=== PATIENT | female | born 1970 | race African-American/Black ===

== ENCOUNTER 2021-09-12 14:10 | Inpatient (IN) | payer OTHER ==
[~2021-09-12] VITALS: Ht 162.6 cm; Wt 57.6 kg
--- NOTE | ~2021-09-12 | EMS ---
[address] [address] EMS Patient Care Report Name: CLEVELAND JAMES Room #: 170-2 ADM IN M.R.#: [id number] Admission: 09/12/21 Attend Phys: Samira Rush Discharge: Date of : 74 Report #: [id number] THIS REPORT FOR: //name// Report Transmitted: 09/12/2021 19:13 EMS Care Summary [place], [place]/[facility] Incident [id number] @ 09/12/2021 13:34 Incident Location [address] [place] [address] Patient CLEVELAND JAMES Female, 51 Years 1970 Patient Address [address] [place] [address] Patient History Hypertension (HTN), Patient Allergies No known allergies, Patient Medications None Reported, Chief Complaint ABDOMINAL PAIN Disposition Transported No Lights/[place] Dispatch Reason Traumatic Injury Transported To [facility] Narrative M41 WAS DISPATCHED FOR A TRAUMATIC INJURY. UPON ARRIVAL ROSSANA PT WAS SITTING ON HER COUCH, HUNCHED FORWARD IN A GUARDED POSITION OVER HER ABDOMEN. THE PT [facility] [address] [place] [address] EMS Patient Care Report Name: CLEVELAND JAMES Room #: 170-2 ADM IN M.R.#: [id number] Admission: 09/12/21 Attend Phys: Samira Rush Discharge: Date of : 74 Report #: [id number] INFORMED EMS THAT WHILE HAVING A BOWEL MOVEMENT SHE HAD A SUDDEN ONSET OF ABDOMINAL PAIN TO HER RIGHT LOWER QUADRANT. THE PT DESCRIBED THIS PAIN ACHY AND THROBBING. THE PT DENIED PAIN ANYWHERE ELSE, AND SAID THE PAIN DID NOT RADIATE TO ANY OTHER PART OF HER BODY. THE PT DID NOT HAVE ANY OBVIOUS DEFORMITIES TO THE AREA. THE PT WAS HYPERTENSIVE, WHICH SHE HAS A HISTORY OF, BUT INFORMED EMS THAT SHE HAD NOT BEEN COMPLIANT WITH HER HYPERTENSIVE MEDICATIONS FOR "ABOUT TWO YEARS". THE PT WAS MOVED TO THE AMBULANCE AND TRANSPORTED TO THE HOSPITAL WHILE BEING MONITORED ENROUTE. THE PT WAS TRANSFERRED TO HOSPITAL STAFF WITH A REPORT. EMS RETURNED TO SERVICE. Initial Vitals @13:54P: 90,R: 20,Pain: 6/10,GCS: 15,CO: 3,SpO2: 100,[place] Suspected: false @14:00P: 91,R: 20,BP: 218/116,Pain: 6/10,GCS: 15,CO: 3,SpO2: 100,Revised Trauma: 12, @13:49P: 79,R: 20,BP: 208/122,Pain: 6/10,GCS: 15,CO: 3,SpO2: 100,Revised Trauma: 12, @13:39P: 94,R: 20,BP: 243/115,Pain: 6/10,GCS: 15,Glucose: 97,SpO2: 100,Revised Trauma: 12,[place] Suspected: false Assessments @13:38MENTAL:Event Oriented,Time Oriented,Place Oriented,Person Oriented,SKIN:HEENT:Head/Face: No Abnormalities,Neck/Airway: No Abnormalities,LUNG SOUNDS:Right Lower: Guarding,Right Upper: Tenderness,Right Lower: Tenderness,General: Nausea,ABDOMEN:Right Lower: Guarding,Right Upper: Tenderness,Right Lower: Tenderness,General: Nausea,PELVIS//GI:No Abnormalities,EXTREMITIES:Left Arm: No Abnormalities,Right Arm: No Abnormalities,Left Leg: No Abnormalities,Right Leg: No Abnormalities,PULSE:Radial: 2+ Normal,NEURO:No Abnormalities, Impression Abdominal Pain Procedures @13:54 12-Lead ECG Response: UnchangedSucceeded @13:39 3-Lead ECG Response: UnchangedSucceeded @13:55 IV Therapy - Saline Lock 0cc (20 ga) Site: Hand-Left Response: UnchangedFailed @13:57 IV Therapy - Saline Lock 0cc (20 ga) Site: Antecubital-Left Response: UnchangedFailed @13:38 ALS Assessment Timeline 13:33,Call Received 13:33,Dispatch Notified 13:34,[place] [address] EMS Patient Care Report Name: CLEVELAND JAMES Room #: 170-2 ADM IN M.R.#: [id number] Admission: 09/12/21 Attend Phys: Samira Rush Discharge: Date of : 74 Report #: [id number] 13:35,En Route 13:37,On Scene 13:38,At Patient 13:38,ALS Assessment, 13:39,3-Lead ECG,Response: UnchangedSucceeded, 13:39,BP: 243/115 M,PULSE: 94,RR: 20 R,SPO2: 100 Ox,ETCO2: ,B,PAIN: 6,GCS: 15, 13:49,BP: 208/122 M,PULSE: 79,RR: 20 R,SPO2: 100 Ox,ETCO2: ,BG: ,PAIN: 6,GCS: 15, 13:54,12-Lead ECG,Response: UnchangedSucceeded, 13:54,BP: / M,PULSE: 90,RR: 20 R,SPO2: 100 Ox,ETCO2: ,BG: ,PAIN: 6,GCS: 15, 13:55,IV Therapy - Saline Lock 0cc 20 ga Site: Hand-Left,Response: UnchangedFailed, 13:56,Depart Scene 13:57,IV Therapy - Saline Lock 0cc 20 ga Site: Antecubital-Left,Response: UnchangedFailed, 14:00,BP: 218/116 M,PULSE: 91,RR: 20 R,SPO2: 100 Ox,ETCO2: ,BG: ,PAIN: 6,GCS: 15, 14:06,At Destination 14:21,Call Closed Disclaimer v1.1 Copyright 2021 [employer] This EMS Care Summary contains data elements from the applicable legal record (which may be displayed differently). It is designed to provide pertinent information for the following purposes: continuity of care, clinical quality, and state data reporting. The complete legal record is available to ED staff and administrators of the receiving hospital in [employer]'s Patient Tracker. All data is provided "as is."
--- NOTE | ~2021-09-12 | EMS ---
[address] [address] EMS Patient Care Report Name: CLEVELAND JAMES Room #: PRE M.R.#: [id number] Admission: Attend Phys: Discharge: Date of : 74 Report #: [id number] THIS REPORT FOR: //name// Report Transmitted: 09/12/2021 13:37 EMS Care Summary [place], [place]/[facility] Incident [id number] @ 09/12/2021 13:34 Incident Location [address] [place] [address] Patient CLEVELAND JAMES Female, 51 Years 1970 Patient Address [address] [place], [place] [id number] Patient History Hypertension (HTN), Patient Allergies No known allergies, Patient Medications None Reported, Chief Complaint ABDOMINAL PAIN Disposition Transported No Lights/[place] Dispatch Reason Traumatic Injury Transported To [facility] Narrative M41 WAS DISPATCHED FOR A TRAUMATIC INJURY. UPON ARRIVAL ORSSANA PT WAS SITTING ON HER COUCH, HUNCHED FORWARD IN A GUARDED POSITION OVER HER ABDOMEN. THE PT [address] [address] EMS Patient Care Report Name: CLEVELAND JAMES Room #: [facility] Carol#: [id number] Admission: Attend Phys: Discharge: Date of : 74 Report #: [id number] INFORMED EMS THAT WHILE HAVING A BOWEL MOVEMENT SHE HAD A SUDDEN ONSET OF ABDOMINAL PAIN TO HER RIGHT LOWER QUADRANT. THE PT DESCRIBED THIS PAIN ACHY AND THROBBING. THE PT DENIED PAIN ANYWHERE ELSE, AND SAID THE PAIN DID NOT RADIATE TO ANY OTHER PART OF HER BODY. THE PT DID NOT HAVE ANY OBVIOUS DEFORMITIES TO THE AREA. THE PT WAS HYPERTENSIVE, WHICH SHE HAS A HISTORY OF, BUT INFORMED EMS THAT SHE HAD NOT BEEN COMPLIANT WITH HER HYPERTENSIVE MEDICATIONS FOR "ABOUT TWO YEARS". THE PT WAS MOVED TO THE AMBULANCE AND TRANSPORTED TO THE HOSPITAL WHILE BEING MONITORED ENROUTE. THE PT WAS TRANSFERRED TO HOSPITAL STAFF WITH A REPORT. EMS RETURNED TO SERVICE. Initial Vitals @13:54P: 90,R: 20,Pain: 6/10,GCS: 15,CO: 3,SpO2: 100,[place] Suspected: false @14:00P: 91,R: 20,BP: 218/116,Pain: 6/10,GCS: 15,CO: 3,SpO2: 100,Revised Trauma: 12, @13:49P: 79,R: 20,BP: 208/122,Pain: 6/10,GCS: 15,CO: 3,SpO2: 100,Revised Trauma: 12, @13:39P: 94,R: 20,BP: 243/115,Pain: 6/10,GCS: 15,Glucose: 97,SpO2: 100,Revised Trauma: 12,[place] Suspected: false Assessments @13:38MENTAL:Person Oriented,Place Oriented,Time Oriented,Event Oriented,SKIN:HEENT:Head/Face: No Abnormalities,Neck/Airway: No Abnormalities,LUNG SOUNDS:General: Nausea,Right Lower: Tenderness,Right Upper: Tenderness,Right Lower: Guarding,ABDOMEN:General: Nausea,Right Lower: Tenderness,Right Upper: Tenderness,Right Lower: Guarding,PELVIS//GI:No Abnormalities,EXTREMITIES:Left Arm: No Abnormalities,Right Arm: No Abnormalities,Left Leg: No Abnormalities,Right Leg: No Abnormalities,PULSE:Radial: 2+ Normal,NEURO:No Abnormalities, Impression Abdominal Pain Procedures @13:54 12-Lead ECG Response: UnchangedSucceeded @13:39 3-Lead ECG Response: UnchangedSucceeded @13:55 IV Therapy - Saline Lock 0cc (20 ga) Site: Hand-Left Response: UnchangedFailed @13:57 IV Therapy - Saline Lock 0cc (20 ga) Site: Antecubital-Left Response: UnchangedFailed @13:38 ALS Assessment Timeline 13:33,Call Received 13:33,Dispatch Notified 13:34,Dispatched [address] [address] EMS Patient Care Report Name: DILMA JAMESSUN Room #: PRE ER M.R.#: [id number] Admission: Attend Phys: Discharge: Date of : 74 Report #: [id number] 13:35,En Route 13:37,On Scene 13:38,At Patient 13:38,ALS Assessment, 13:39,3-Lead ECG,Response: UnchangedSucceeded, 13:39,BP: 243/115 M,PULSE: 94,RR: 20 R,SPO2: 100 Ox,ETCO2: ,B,PAIN: 6,GCS: 15, 13:49,BP: 208/122 M,PULSE: 79,RR: 20 R,SPO2: 100 Ox,ETCO2: ,BG: ,PAIN: 6,GCS: 15, 13:54,12-Lead ECG,Response: UnchangedSucceeded, 13:54,BP: / M,PULSE: 90,RR: 20 R,SPO2: 100 Ox,ETCO2: ,BG: ,PAIN: 6,GCS: 15, 13:55,IV Therapy - Saline Lock 0cc 20 ga Site: Hand-Left,Response: UnchangedFailed, 13:56,Depart Scene 13:57,IV Therapy - Saline Lock 0cc 20 ga Site: Antecubital-Left,Response: UnchangedFailed, 14:00,BP: 218/116 M,PULSE: 91,RR: 20 R,SPO2: 100 Ox,ETCO2: ,BG: ,PAIN: 6,GCS: 15, 14:06,At Destination 14:21,Call Closed Disclaimer v1.1 Copyright 2021 [employer] This EMS Care Summary contains data elements from the applicable legal record (which may be displayed differently). It is designed to provide pertinent information for the following purposes: continuity of care, clinical quality, and state data reporting. The complete legal record is available to ED staff and administrators of the receiving hospital in [employer]'s Patient Tracker. All data is provided "as is."
[~2021-09-12 14:10] MED LIST: NOHOMEMEDICATIONS; NORCO 5-325 TA1 EACH PO
[2021-09-12 14:31] LABS: HEMATOCRIT 43.2 % (37.0-47.0); HEMOGLOBIN 14.8 gm/dL (12.0-15.0); MCHC 34.3 g/dL (28.0-37.0); MCV 96.2 fL (80.0-100.0); RBC 4.49 mil/uL (4.20-5.00); RDW 18.8 % (10.5-14.5); WBC 8.7 thou/uL (4.0-11.0)
[2021-09-12 14:34] LABS: CREATININE 0.7 mg/dL (0.6-1.0); POTASSIUM 4.4 mmol/L (3.5-5.1)
[2021-09-12 14:40] LABS: ALBUMIN 4.3 g/dL (3.4-5.0); TOTAL BILIRUBIN 0.3 mg/dL (0.2-1.0)
[2021-09-12 14:59] LABS: URINE BILIRUBIN NEGATIVE (Negative); URINE BLOOD NEGATIVE (Negative); URINE CLARITY CLEAR; URINE COLOR YELLOW; URINE GLUCOSE-RANDOM* NEGATIVE (Negative); URINE KETONES NEGATIVE (Negative); URINE LEUKOCYTES-REFLEX NEGATIVE (Negative); URINE NITRITE-REFLEX NEGATIVE (Negative); URINE PROTEIN (DIPSTICK) 2+ (Negative); URINE SPECIFIC GRAVITY 1.025 (1.005-1.035); URINE UROBILINOGEN 0.2 E.U./dl (0.2-1.0)
[2021-09-12 15:24] LABS: BACTERIA-REFLEX None Seen /HPF (None Seen); CASTS None Seen /LPF (None Seen); CRYSTALS None Seen /LPF (None Seen); SQUAMOUS 0-3 Few /LPF (0-3); URINE RBC None Seen /HPF (NONE SEEN); URINE WBC-REFLEX 0-5 Rare /HPF (0-5)
[2021-09-12 17:41] LABS: AMP/METHAMP Negative (Negative); BARBITURATES Negative (Negative); BENZODIAZEPINES Negative (Negative); COCAINE Negative (Negative); METHADONE Negative (Negative); OPIATES Negative (Negative); PCP Negative (Negative)
[2021-09-12 21:00] VITALS: BP 193/105
[2021-09-13] VITALS (7 sets, daily range): BP systolic 171–220; BP diastolic 100–119
[2021-09-13 06:03] LABS: HEMATOCRIT 38.9 % (37.0-47.0); MCH 32.5 pg (26.0-34.0); MCHC 33.4 g/dL (28.0-37.0); MCV 97.2 fL (80.0-100.0); RDW 18.9 % (10.5-14.5); WBC 11.2 thou/uL (4.0-11.0)
[2021-09-13 06:17] LABS: CALCIUM 8.3 mg/dL (8.5-10.1); CREATININE 0.9 mg/dL (0.6-1.0)
[2021-09-13 06:21] LABS: ALBUMIN 3.5 g/dL (3.4-5.0); PHOSPHORUS 2.3 mg/dL (2.6-4.7)
[2021-09-13 06:24] LABS: POTASSIUM 3.4 mmol/L (3.5-5.1)
--- NOTE | 2021-09-13 06:45 | NUR ---
END OF SHIFT SUMMARY: PT WAS ABLE TO GET SOME REST DURING THE NIGHT, HOWEVER CONTINUED TO COMPLAIN OF PAIN. PAIN MEDICINE WAS GIVEN WHEN TIME, AND MEDICINE WOULD HELP WITH PAIN FOR ABOUT 2-3 HOURS. PTS BLOOD PRESSURE WAS TREATED THROUGHOUT THE NIGHT WITH SCHEDULED AND PRN MEDICATION. PT DOES SEEM UNCOMFORTABLE UPON ASSESSMENT AND QUESTIONING ABOUT PAIN HOWEVER WHILE AT BEDSIDE GIVING SCHEDULED 0600 MEDICATIONS, PT DOZED OFF AND FORGOT NURSE WAS AT BEDSIDE GIVING MEDICATIONS. VITAL SIGNS HAVE REMAINED STABLE THROUGH THE NIGHT WITH BLOOD PRESSURE MEDICATIONS. PT DOES HAVE CALL LIGHT AND WATER AT BEDSIDE. CALL LIGHT IN REACH. PT DENIES ANY NEEDS AT THIS TIME, OTHER THAN PAIN MEDICATION. PT EDUCATED THAT MEDICATION CAN ONLY BE GIVEN EVERY 4 HOURS, PT STATED UNDERSTANDING.
--- NOTE | 2021-09-13 09:01 | NUR ---
pt arrived to unit via wheelchair; 2LNC; 9/10 PAIN ABD; PATIENT A&0X4 VS ON ADMISSION 192/104 RIGHT UPPER ARM; SEMI MIRANDA'S POSITION; 100% 2LNC, 62 HR, 16 RR. DENIES CHEST PAIN, N/V, NUMBNESS, TINGLING. REPORT GIVEN THAT PATIENT HAS BEEN HTN ALL NIGHT, WITH PRN MEDICATIONS GIVEN.
--- NOTE | 2021-09-13 09:08 | NUR ---
DR. SHAHID PAGED IN REGARDS TO ELEVATED BP. CONTINUED TO BE ELEVATED THROUGHOUT THE NIGHT, 190/100'S
--- NOTE | 2021-09-13 15:12 | NUR ---
7050 RUMA AMARO NOTIFIED OF SEVERAL ATTEMPTS FOR NG TUBE PLACEMENT WITH NO SUCCESS. PT REFUSED ANY FURTHER ATTEMPTS. ORDER FOR LIDOCAINE SPRAY OBTAINED, SEE ORDERS. WILL ATTEMPT AGAIN ONCE MEDICATIONS ARE AVAILABLE.
--- NOTE | 2021-09-13 15:44 | NUR ---
1530 NG TUBE SUCCESSFULLY PLACED; 1540 XRAY IN ROOM TO CONFIRM PLACEMENT; NG TUBE AT 53 AT NASAL OPENING; WILL WAIT FOR CONFIRMATION FROM RADIOLOGIST PRIOR TO SETTING SUCTION UP ON LOW INTERM. SUCTION.
--- NOTE | 2021-09-13 16:45 | NUR ---
ADVANCED NG PER RECOMMENDATION; NG NOW AT 65 CM; CXR ORDERED TO RECHECK PLACEMENT
--- NOTE | 2021-09-13 18:08 | NUR ---
PAGED DR. WILLS TO VERIFY OK TO START SUCTION. VERBAL ORDER OK TO START. LOW INTERM. SUCTION
[2021-09-14 03:10] LABS: HEMATOCRIT 40.1 % (37.0-47.0); HEMOGLOBIN 13.4 gm/dL (12.0-15.0); MCH 32.3 pg (26.0-34.0); MCHC 33.3 g/dL (28.0-37.0); RBC 4.13 mil/uL (4.20-5.00); RDW 18.7 % (10.5-14.5); WBC 12.6 thou/uL (4.0-11.0)
[2021-09-14 04:07] VITALS: BP 159/93
[2021-09-14 04:53] LABS: ALBUMIN 3.5 g/dL (3.4-5.0); CALCIUM 8.2 mg/dL (8.5-10.1); CREATININE 0.7 mg/dL (0.6-1.0); PHOSPHORUS 2.3 mg/dL (2.5-4.9)
--- NOTE | 2021-09-14 04:56 | NUR ---
Pt. was given ivp pain medication for c/o abdominal pain (see emar). She wanted her ng tube taken out or more pain meds. Spoke with Shikha WOODS and no new orders for any further pain intervention. Pt. decided to leave the ng tube in. Ng tube is patent to low intermittent suction.
[2021-09-14 07:40] VITALS: BP 181/84
--- NOTE | 2021-09-14 14:43 | NUR ---
1200 pt left floor for study. 1440 pt still off floor.
--- NOTE | 2021-09-14 14:50 | NUR ---
pt just got back from radiology
[2021-09-14 15:41] VITALS: BP 220/120
[2021-09-14 19:15] VITALS: BP 214/120
[2021-09-15 04:04] LABS: ALBUMIN 3.3 g/dL (3.4-5.0); CREATININE 0.5 mg/dL (0.6-1.0); MAGNESIUM 1.9 mg/dL (1.8-2.4); PHOSPHORUS 2.2 mg/dL (2.5-4.9)
[2021-09-15 04:35] VITALS: BP 173/103
--- NOTE | 2021-09-15 04:59 | NUR ---
Pt. rested quietly at intervals during the night when checked on during frequent rounds. She c/o abdominal pain and pain meds given (see emar) with some relief noted. Ngt patent to left nare. No c/o nausea and reports having bowel movement. Bp elevated and prn antihypertensives given (see emar). Shikha WOODS also notified of elevated bp's.
[2021-09-15 07:08] VITALS: BP 176/100
--- NOTE | 2021-09-15 08:52 | NUR ---
Assumed care of pt at 0700. Pt a&ox4. Pain controlled with prn pain medications. NG tube connected to low-intermittent suction. IVF infusing. Pt states "I hope wants the NG tubed is removed today." Call light within reach. Will continue to monitor.
[2021-09-15 16:48] VITALS: BP 172/104
[2021-09-15 19:54] VITALS: BP 181/101
[2021-09-16 03:37] LABS: HEMATOCRIT 37.6 % (37.0-47.0); HEMOGLOBIN 12.5 gm/dL (12.0-15.0); MCH 32.4 pg (26.0-34.0); MCHC 33.2 g/dL (28.0-37.0); MCV 97.6 fL (80.0-100.0); RBC 3.85 mil/uL (4.20-5.00); RDW 18.1 % (10.5-14.5); WBC 9.4 thou/uL (4.0-11.0)
[2021-09-16 04:02] LABS: ALBUMIN 3.1 g/dL (3.4-5.0); CREATININE 0.4 mg/dL (0.6-1.0); POTASSIUM 3.6 mmol/L (3.5-5.1)
--- NOTE | 2021-09-16 05:09 | NUR ---
Pt. rested quietly during the night when checked on during frequent rounds. Pain med given (see emar) for c/o abdominal pain with relief noted. Plan to have colonoscopy today.
[2021-09-16 07:35] VITALS: BP 151/96
[2021-09-16] MEDS ORDERED: TRANDATE 200 M200 M1 PO (11:22)
[2021-09-16 12:10] VITALS: BP 165/92
[2021-09-16 15:07] VITALS: BP 165/92
[2021-09-19 12:07] LABS: ALDOSTERONE < 1.0 ng/dL (0.0-30.0)
--- NOTE | 2021-09-19 20:06 | PATH ---
[facility] [place] [address] PATHOLOGY RPT PROCEDURE Name: ANTHONY JAMES Room #: 438-P DIS IN M.R.#: [id number] Admission: 09/12/21 Date of : 74 Discharge: 09/16/21 Report #: [id number] Path Case #: [id number] [facility] Accession Number: [id number] . 01 Material submitted: . PART A: colon - ASCENDING COLON POLYP. Modifiers: ascending PART B: colon - RANDOM COLON BIOPSY- R/O MICROSCOPIC COLITIS PART C: colon - TRANSVERSE COLON POLYP. Modifiers: transverse . 01 Clinical history: . COLONOSCOPY ABNORMAL CT SCAN, CHRONIC DIARRHEA ABDOMINAL PAIN . 02 Diagnosis: A. Large bowel "ascending colon polyp", biopsy: - Tubular adenoma; negative for high-grade dysplasia and malignancy. . B. Large bowel "random colon", biopsy: - Large bowel mucosa without significant pathologic alteration. - Negative for features of microscopic colitis, active inflammation, granulomatous inflammation, crypt architectural distortion, dysplasia and malignancy. . C. Large bowel "transverse colon polyp", biopsy: - Tubular adenoma; negative for high-grade dysplasia and malignancy. . (DOLORES:haley; 09/19/2021) MBR 09/19/2021 1936 Local . 02 Electronically signed: . Pradeep Sims MD, Pathologist NPI- [id number] . 01 Gross description: . A. The specimen is received in formalin, labeled "Anthony James, ascending colon polyp,". Received is a segment of pale cedillo tissue measuring 0.2 cm in maximum dimensions. The specimen is submitted entirely in cassette A1. . B. The specimen is received in formalin, labeled "Anthony James, random colon BX". Received are 3 segments of pale cedillo tissue ranging in size from 0.3 to 0.5 cm in maximum dimensions. The specimen is submitted entirely in cassette B1. . C. The specimen is received in formalin, labeled "Anthony James, transverse colon polyp". Received is a segment of pale cedillo tissue [address] [address] PATHOLOGY RPT PROCEDURE Name: ANTHONY JAMES Room #: 438-P DIS IN M.R.#: [id number] Admission: 09/12/21 Date of : 74 Discharge: 09/16/21 Report #: [id number] Path Case #: [id number] measuring 0.6 cm in maximum dimensions. The specimen is submitted entirely in cassette C1.([facility]; 09/16/2021) [facility] 09/16/2021 1753 Local . 02 Pathologist provided ICD-10: D12.2, D12.3, K52.9, R10.9 . 02 CPT . 898115, 959109, 579340 Specimen Comment: Report sent to Performed at: [facility] [address] [id number] MD Parker Almendarez MD Phone: [phone] Performed at: 02 [facility] [address] [id number] MD Иван Melton MD Phone: [phone]
== END 2021-09-16 15:15 | disposition home or self-care (01) | DRG 389 ==
LOC: ER 14:10 → EROBS 18:26 → 4S 09-13 08:39
PROVIDERS: Nurse Practitioner; ADMIT Hospitalist; ATTEND Hospitalist
DX: K56.600 Partial intestinal obstruction, unspecified as to cause (principal); K92.1 Melena; I10 Essential (primary) hypertension; F12.90 Cannabis use, unspecified, uncomplicated; K52.9 Noninfective gastroenteritis and colitis, unspecified; R16.0 Hepatomegaly, not elsewhere classified; Z20.822 Contact with and (suspected) exposure to COVID-19
CPT/HCPCS: 10100; 62110; 62900; 70005